=== PATIENT | male | born 1965 | race African-American/Black ===

== ENCOUNTER 2020-07-02 12:12 | Emergency (ER) | payer OTHER ==
[~2020-07-02] VITALS: Ht 177.8 cm; Wt 113.4 kg
[2020-07-02 12:18] VITALS: BP 176/95
--- NOTE | 2020-07-02 12:20 | NUR ---
PT AMBULATED TO BED 6
--- NOTE | 2020-07-02 12:22 | NUR ---
patient ambulated to bed 6.
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
--- NOTE | 2020-07-02 12:35 | NUR ---
X-Ray at bedside.
[2020-07-02] MEDS: IBUPROFEN 600 MG TAB PO ONE (12:54)
[2020-07-02] MEDS: SULFAMETH/TRIMETH DS 800/160MG 1 TAB PO ONE (14:48)
[2020-07-02] MEDS: cephALEXin 500 MG CAP PO ONE (14:48)
[2020-07-02 16:05] VITALS: BP 176/95
--- NOTE | 2020-07-02 16:05 | NUR ---
Patient discharged with v/s stable. Written and verbal after care instructions given and explained. Patient alert, oriented and verbalized understanding of instructions. Ambulatory with steady gait. All questions addressed prior to discharge. ID band removed. Patient advised to follow up with PMD. Rx of IBUPROFEN, KEFLEX, BACTRIM given. Patient educated on indication of medication including possible reaction and side effects. Opportunity to ask questions provided and answered.
== END 2020-07-02 16:05 | disposition home or self-care (01) ==
LOC: MED 12:12
DX: S62.636A Displaced fracture of distal phalanx of right little finger, initial encounter for closed fracture (principal); W23.0XXA Caught, crushed, jammed, or pinched between moving objects, initial encounter; Y93.89 Activity, other specified; Y92.89 Other specified places as the place of occurrence of the external cause; Y99.8 Other external cause status
CPT/HCPCS: 12001; 73130; 90471; 90715; 99284; Q0092